=== PATIENT | female | born 1985 | race Caucasian/White ===

== ENCOUNTER 2017-03-23 12:12 | Emergency (ER) | payer MEDICAID | END 2017-03-23 13:31 | LOC: ED 12:12 | DX: K08.89 Other specified disorders of teeth and supporting structures (principal) | CPT/HCPCS: 99283 ==

== ENCOUNTER 2018-05-28 00:21 | Emergency (ER) | payer SELFPAY ==
[~2018-05-28] VITALS: Ht 147.3 cm; Wt 56.2 kg
[2018-05-28 00:29] VITALS: BP 118/77
[2018-05-28] MEDS ORDERED: IBUPROFEN 800 MG TABLET PO STA (01:02)
[2018-05-28] MEDS ORDERED: DEXAMETHASONE 4 MG TABLET PO STA (01:02)
[2018-05-28] MEDS ORDERED: DEXAMETHASONE 4 MG TABLET ONE (01:11)
[2018-05-28] MEDS ORDERED: IBUPROFEN 800 MG TABLET ONE ×2 (01:11→01:14)
== END 2018-05-28 02:29 | disposition home or self-care (01) ==
LOC: ED 02:09
DX: J02.8 Acute pharyngitis due to other specified organisms (principal); B97.89 Other viral agents as the cause of diseases classified elsewhere; F17.210 Nicotine dependence, cigarettes, uncomplicated
CPT/HCPCS: 71046; 87081; 87880; 99285; 99406

== ENCOUNTER 2018-06-06 20:40 | Emergency (ER) | payer SELFPAY ==
[~2018-06-06] VITALS: Ht 147.3 cm; Wt 60.0 kg
[2018-06-06 20:49] VITALS: BP 127/76
[2018-06-06] MEDS ORDERED: LIDOCAINE-MPF 1%, 5ML INFIL ONE (21:00)
[2018-06-06] MEDS ORDERED: LIDOCAINE-MPF 1%, 5ML ONE (21:01)
== END 2018-06-06 22:00 | disposition home or self-care (01) ==
LOC: ED 21:54
DX: S91.012A Laceration without foreign body, left ankle, initial encounter (principal); F17.200 Nicotine dependence, unspecified, uncomplicated; Z90.49 Acquired absence of other specified parts of digestive tract; W26.8XXA Contact with other sharp object(s), not elsewhere classified, initial encounter; Y93.39 Activity, other involving climbing, rappelling and jumping off; Y92.098 Other place in other non-institutional residence as the place of occurrence of the external cause; Y99.8 Other external cause status
CPT/HCPCS: 12002; 99283

== ENCOUNTER 2018-06-21 01:28 | Emergency (ER) | payer OTHER ==
[~2018-06-21] VITALS: Ht 147.3 cm; Wt 61.4 kg
[2018-06-21] MEDS ORDERED: BACITRACIN ZINC OINT 500U/GM, 0.9 GM ONE (02:24)
[2018-06-21 03:17] VITALS: BP 122/71
== END 2018-06-21 03:19 | disposition home or self-care (01) ==
LOC: ED 01:45
DX: S91.114A Laceration without foreign body of right lesser toe(s) without damage to nail, initial encounter (principal); Z90.49 Acquired absence of other specified parts of digestive tract; X58.XXXA Exposure to other specified factors, initial encounter; Y93.89 Activity, other specified; Y99.8 Other external cause status; Y92.89 Other specified places as the place of occurrence of the external cause
CPT/HCPCS: 99281; 99283

== ENCOUNTER 2018-07-07 17:16 | Emergency (ER) | payer MEDICAID, OTHER ==
[~2018-07-07] VITALS: Ht 147.3 cm; Wt 67.4 kg
[2018-07-07 17:19] VITALS: BP 137/93
== END 2018-07-07 17:39 | disposition home or self-care (01) ==
LOC: ED 17:35
DX: K02.9 Dental caries, unspecified (principal); K04.7 Periapical abscess without sinus
CPT/HCPCS: 99283

== ENCOUNTER 2021-06-20 10:05 | Emergency (ER) | payer MEDICAID ==
[~2021-06-20] VITALS: Ht 147.3 cm; Wt 59.8 kg
--- NOTE | 2021-06-20 10:13 | NUR ---
ICE PACK GIVEN IN TRIAGE.
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
[2021-06-20] MEDS ORDERED: BUPIVACAINE 0.25% INFIL ONE (10:30)
[2021-06-20] MEDS ORDERED: BUPIVACAINE 0.25% ONE (10:36)
[2021-06-20] MEDS ORDERED: LIDOCAINE-MPF 1%, 5ML ONE (10:36)
--- NOTE | 2021-06-20 10:59 | NUR ---
REJI MAXWELL AT BEDSIDE PERFORMING NERVE BLOCK FOR PT.
[2021-06-20] MEDS ORDERED: LIDOCAINE 1%, 10ML INFIL ONE (11:00)
[2021-06-20] MEDS ORDERED: NEOSPORIN OINT. PKT 1 PACKET ONE (12:17)
[2021-06-20 12:31] VITALS: BP 107/72
== END 2021-06-20 12:51 | disposition home or self-care (01) ==
LOC: ED 12:20
DX: S61.210A Laceration without foreign body of right index finger without damage to nail, initial encounter (principal); S61.212A Laceration without foreign body of right middle finger without damage to nail, initial encounter; L03.011 Cellulitis of right finger; Z90.89 Acquired absence of other organs; Z90.49 Acquired absence of other specified parts of digestive tract; W23.0XXA Caught, crushed, jammed, or pinched between moving objects, initial encounter; Y93.89 Activity, other specified; Y92.59 Other trade areas as the place of occurrence of the external cause; Y99.8 Other external cause status
CPT/HCPCS: 12002; 99283

== ENCOUNTER 2021-06-21 11:18 | Emergency (ER) | payer MEDICAID ==
[~2021-06-21] VITALS: Ht 147.3 cm; Wt 60.2 kg
[2021-06-21] MEDS ORDERED: HYDROmorphone 2 MG/ML, 1ML ONE (11:56)
--- NOTE | 2021-06-21 11:59 | NUR ---
1MG DILAUDID GIVEN IM, WASTED 1MG WITH VINICIO GRANADOS. PT REFUSING TO ALLOW THIS NURSE TO REMOVE BANDAGES UNTIL MEDICATION TAKES EFFECT.
[2021-06-21] MEDS ORDERED: HYDROmorphone 1 MG/ML, 1ML INJ IM ONE (12:00)
[2021-06-21 13:42] VITALS: BP 125/71
== END 2021-06-21 13:45 | disposition home or self-care (01) ==
LOC: ED 12:15
DX: S67.21XA Crushing injury of right hand, initial encounter (principal); L03.113 Cellulitis of right upper limb; X58.XXXA Exposure to other specified factors, initial encounter; Y93.89 Activity, other specified; Y92.89 Other specified places as the place of occurrence of the external cause; Y99.8 Other external cause status
CPT/HCPCS: 96372; 99283; J1170